=== PATIENT | male | born 1970 | race Two or more races ===

== ENCOUNTER 2018-07-07 20:03 | Emergency (ER) | payer OTHER ==
[~2018-07-07] VITALS: Ht 182.9 cm; Wt 90.7 kg
[2018-07-07] MEDS ORDERED: SODIUM CHLORIDE 0.9% 1,000 ML IV ONE (21:15)
[2018-07-07] MEDS ORDERED: fentaNYL CITRATE 100 MCG/2 ML VL IV ONE (21:15)
[2018-07-07] MEDS ORDERED: ETOMIDATE (2MG/ML) 20ML VIAL IV ONE (21:15)
[2018-07-07 22:47] VITALS: BP 154/98
[2018-07-07] MEDS: ONDANSETRON HCL 4 MG/2 ML VIAL IV ONE ×2 (22:56→23:16)
[2018-07-07] MEDS: MORPHINE SULFATE 4 MG/ML SYR/VIAL IV ONE ×2 (22:56→23:17)
== END 2018-07-08 00:20 | disposition home or self-care (01) ==
LOC: ER 20:11
DX: S82.51XA Displaced fracture of medial malleolus of right tibia, initial encounter for closed fracture (principal); W14.XXXA Fall from tree, initial encounter; Y93.89 Activity, other specified; Y99.8 Other external cause status; Y92.89 Other specified places as the place of occurrence of the external cause
CPT/HCPCS: 27788; 73610; 96374; 96375; 99152; 99153; 99285; J2270; J2405; J3010

== ENCOUNTER 2019-02-01 08:59 | Emergency (ER) | payer OTHER ==
[~2019-02-01] VITALS: Ht 182.9 cm; Wt 90.7 kg
[2019-02-01 09:07] VITALS: BP 138/83
[2019-02-01] MEDS ORDERED: TETANUS-DIPTH-ACEL PERTUSSIS 0.5ML SYRG IM ONE (10:15)
[2019-02-01] MEDS ORDERED: LIDOCAINE 1% HCL (LOCAL ANESTH.) INJ 20ML MDV IJ ONE (10:15)
== END 2019-02-01 10:52 | disposition home or self-care (01) ==
LOC: ER 09:02
DX: S61.210A Laceration without foreign body of right index finger without damage to nail, initial encounter (principal); X78.8XXA Intentional self-harm by other sharp object, initial encounter; Y93.89 Activity, other specified; Y92.89 Other specified places as the place of occurrence of the external cause; Y99.8 Other external cause status
CPT/HCPCS: 12001; 90471; 90715; 99283; J2001